=== PATIENT | male | born 1980 | race Caucasian/White ===

== ENCOUNTER 2017-02-23 12:46 | Emergency (ER) | payer OTHER ==
[~2017-02-23] VITALS: Ht 175.3 cm; Wt 88.5 kg
[~2017-02-23 12:46] MED LIST: AZIT-18 PO; FLUO40CA76 PO; ROPI4TAB22 PO; TRAZ-156 PO
--- NOTE | 2017-02-23 13:05 | ER Report ---
History and Physical Time Seen By MD: 13:01 Hx. of Stated Complaint: pt has been exposed to flu, vomited last night, coughing up brown goo, chest hurts when coughing, sore throat HPI/ROS CHIEF COMPLAINT: Cough, sore throat HISTORY OF PRESENT ILLNESS: Patient is a 36-year-old male who presents the ED with complaint of three-day history of cough and sore throat. He states that he was exposed to strep throat and influenza by some of his friends that he was hanging out with. He is concerned that he may have one of these issues. He has been feeling warm at home but has not documented fever. He has not been taking any medications for her symptoms currently. He states that his cough is not productive. He denies any shortness of breath or chest pain. REVIEW OF SYSTEMS: Constitutional: No fever, no chills. Eyes: No discharge. ENT: See history of present illness. Cardiovascular: No chest pain, no palpitations. Respiratory: See history of present illness. Gastrointestinal: No abdominal pain, no vomiting.n.] Skin: No rashes. Neurological: No headache. Allergies: Coded Allergies: codeine (Verified Allergy, Mild, 02/23/17) ITCHING Home Meds Reported Medications Allopurinol (ZYLOPRIM) 300 Mg Tablet, 300 MG PO QDAY, TAB 02/23/17 Fluoxetine Hcl (PROZAC) 40 Mg Capsule, 40 MG PO QDAY, CAPSULE 03/26/16 Ropinirole Hcl (ROPINIROLE HCL) 4 Mg Tablet, 4 MG PO QDAY 03/26/16 Trazodone Hcl (TRAZODONE HCL) 50 Mg Tablet, 50 MG PO QHS 03/26/16 Discontinued Scripts Azithromycin 250 Mg Tab (AZITHROMYCIN 250 MG TAB) 250 Mg Tablet, 1 TAB PO QDAY, #4 TAB Take1 tab a day until gone. Prov:KATYAKATERINA GEOPHYSICIST 03/26/16 Reviewed Nurses Notes: Yes Old Medical Records Reviewed: Yes Constitutional Vital Sign - Last 24 Hours 02/23/17 02/23/17 02/23/17 02/23/17 12:51 12:52 13:01 13:16 Temp 98.4 Pulse 107 101 100 Resp 20 B/P (MAP) 141/97 141/97 (112) Pulse Ox 96 95 95 O2 Delivery Room Air 1/12/18 02/23/17 02/23/17 02/23/17 13:31 13:46 13:55 14:01 Pulse 102 92 92 B/P (MAP) 134/91 (105) Pulse Ox 94 95 95 Physical Exam General Appearance: The patient is alert, has no immediate need for airway protection and no signs of toxicity. Patient appears been no acute distress. Eyes: Pupils equal and round no pallor or injection. ENT, Mouth: Mucous membranes are moist. Respiratory: There are no retractions, lungs are clear to auscultation. Cardiovascular: Regular rate and rhythm. ] Skin: Warm and dry, no rashes. Musculoskeletal: Neck is supple non tender. Extremities are nontender, nonswollen and have full range of motion. DIFFERENTIAL DIAGNOSIS: After history and physical exam differential diagnosis was considered for cough and sore throat including influenza, strep pharyngitis , pneumonia, upper respiratory infection. This is an incomplete list. Medical Decision Making Data Points Laboratory Hematology Test 02/23/17 13:24 Influenza Type A Antigen Negative (NEGATIVE) Influenza Type B Antigen Positive (NEGATIVE) Group A Streptococcus Screen Negative (NEGATIVE) Chemistry Test 02/23/17 13:24 Influenza Type A Antigen Negative (NEGATIVE) Influenza Type B Antigen Positive (NEGATIVE) Group A Streptococcus Screen Negative (NEGATIVE) ED Course/Re-evaluation ED Course Will obtain strep and influenza swabs. 02/23/2017 2:17:48 pm - discussed all results with patient including he is positive for influenza B. He has had 3 days of symptoms he is not a candidate use Tamiflu. Advised for supportive cares. Will give him Tessalon Perles for cough. Decision to Disposition Date: Feb 23, 2017 Decision to Disposition Time: 14:18 Depart Departure Latest Vital Signs Vital Signs Date Time Temp Pulse Resp B/P (MAP) Pulse Ox O2 Delivery O2 Flow Rate FiO2 02/23/17 14:01 92 95 02/23/17 13:55 134/91 (105) 02/23/17 12:51 98.4 20 Room Air Impression: Primary Impression: Influenza B Condition: Improved Disposition: HOME OR SELF-CARE New Scripts Benzonatate 100 Mg Cap (TESSALON PERLE 100 MG CAP) 100 Mg Capsule 100 MG PO TID Y for COUGH, #15 CAP Prov: RONALDO PORTILLO PA-C 02/23/17 Patient Instructions: Influenza (ED) Additional Instructions: Stay well-hydrated. Follow-up with primary care provider in 3-4 days. If having worsening or concerning symptoms may return to the emergency department. RONALDO PORTILLO PA-C Feb 23, 2017 13:05
[2017-02-23] MEDS ORDERED: ALLO-119 PO (13:54)
[2017-02-23 13:55] VITALS: BP 134/91
[2017-02-23] MEDS ORDERED: BENZ100C4 PO (14:19)
== END 2017-02-23 14:42 | disposition home or self-care (01) ==
LOC: ER 12:48
DX: J11.1 Influenza due to unidentified influenza virus with other respiratory manifestations (principal)
CPT/HCPCS: 87081; 87502; 87880; 99282